=== PATIENT | male | born 1975 | race Caucasian/White ===

== ENCOUNTER 2016-06-27 22:37 | Emergency (ER) | payer MEDICAID ==
[2016-06-27 22:56] VITALS: RESP 16; TEMP 98.2
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
[2016-06-28 01:35] VITALS: BP 132/88; PULSE 69; O2SAT 97
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
== END 2016-06-28 01:20 | disposition home or self-care (01) ==
DX: S19.9XXA Unspecified injury of neck, initial encounter (principal); I10 Essential (primary) hypertension; Z87.891 Personal history of nicotine dependence; V48.5XXA Car driver injured in noncollision transport accident in traffic accident, initial encounter; Y92.410 Unspecified street and highway as the place of occurrence of the external cause; Y93.89 Activity, other specified